=== PATIENT | female | born 1975 | race Caucasian/White ===

== ENCOUNTER → 2023-10-18 09:06 | Outpatient (REF) | payer OTHER, SELFPAY | LOC: MRI 3T 09:06 | PROVIDERS: ATTENDING PHYSICIAN Internal Medicine; FAMILY PHYSICIAN Nurse Practitioner Primary Care | DX: K50.918 Crohn's disease, unspecified, with other complication (principal) | CPT/HCPCS: 72197; 74183; A9575 ==

== ENCOUNTER → 2024-06-30 09:41 | Outpatient (REF) | payer OTHER, SELFPAY | LOC: HWRAD 09:41 | PROVIDERS: ATTENDING PHYSICIAN Nurse Practitioner Primary Care | DX: Z90.49 Acquired absence of other specified parts of digestive tract (principal); M62.08 Separation of muscle (nontraumatic), other site; R19.09 Other intra-abdominal and pelvic swelling, mass and lump; R10.819 Abdominal tenderness, unspecified site; Z86.018 Personal history of other benign neoplasm | CPT/HCPCS: 74177; Q9967 ==

== ENCOUNTER → 2024-07-24 13:19 | Outpatient (REF) | payer OTHER, SELFPAY | LOC: HWRAD 13:19 | PROVIDERS: ATTENDING PHYSICIAN Obstetrics & Gynecology; FAMILY PHYSICIAN Nurse Practitioner Primary Care | DX: D25.9 Leiomyoma of uterus, unspecified (principal) | CPT/HCPCS: 76830; 76856 ==

== ENCOUNTER → 2024-09-14 10:14 | Outpatient (REF) | payer OTHER, SELFPAY | LOC: HWWDC 10:14 | PROVIDERS: ATTENDING PHYSICIAN Obstetrics & Gynecology; FAMILY PHYSICIAN Nurse Practitioner Primary Care | DX: Z12.31 Encounter for screening mammogram for malignant neoplasm of breast (principal) | CPT/HCPCS: 77063; 77067 ==

== ENCOUNTER 2024-10-26 06:35 | Day surgery (SDC) | payer OTHER, SELFPAY | END 2024-10-26 11:06 | disposition home or self-care (01) | LOC: GI 06:35 | PROVIDERS: ATTENDING PHYSICIAN Internal Medicine | DX: Z12.11 Encounter for screening for malignant neoplasm of colon (principal); K64.9 Unspecified hemorrhoids; K57.30 Diverticulosis of large intestine without perforation or abscess without bleeding; K50.10 Crohn's disease of large intestine without complications; Z98.0 Intestinal bypass and anastomosis status | CPT/HCPCS: 45380; 88305 ==

== ENCOUNTER → 2025-08-01 13:01 | Outpatient (REF) | payer OTHER, SELFPAY | LOC: HWEVLT 13:01 | PROVIDERS: ATTENDING PHYSICIAN Radiology Vascular & Interventional Radiology | DX: I83.892 Varicose veins of left lower extremity with other complications (principal) | CPT/HCPCS: 36478 ==

== ENCOUNTER → 2025-08-15 11:32 | Outpatient (REF) | payer OTHER, SELFPAY | LOC: HWEVLT 11:32 | PROVIDERS: ATTENDING PHYSICIAN Radiology Vascular & Interventional Radiology | DX: I83.892 Varicose veins of left lower extremity with other complications (principal) | CPT/HCPCS: 93971 ==